=== PATIENT | male | born 1980 | race African-American/Black ===

== ENCOUNTER 2020-04-10 20:29 | Emergency (ER) | payer MEDICAID ==
[~2020-04-10] VITALS: Ht 175.3 cm; Wt 53.0 kg
--- NOTE | 2020-04-10 20:44 | NUR ---
md at bedside to assess pt
--- NOTE | 2020-04-10 20:47 | NUR ---
THIS IS A 39Y M BIB EMS FROM HOME FOR WORSENING ALL OVER JOINT/ BODY PAIN X3 MONTHS. PT HAS HX OF DM AND HAS BEEN TAKING INSULIN BUT NOT BEING ABLE TO URINATE MUCH HE PREVIOUSLY HAS BEEN. PT CONNECTED TO ALL MONITORING VSS, HR TACHY BUT IMPROVING PER EMS REPORT. ERP AWARE. FSBS FOR EMS WAS 210.
[2020-04-10] MEDS ORDERED: SODIUM CHLORIDE 0.9% 1,000 ML IV ONE (20:53)
[2020-04-10] MEDS ORDERED: SODIUM CHLORIDE FLUSH 10ML SYR IVF ONE (21:00)
[2020-04-10] MEDS ORDERED: SODIUM CHLORIDE 0.9% 1,000ML IVBOLUS ONE ×2 (21:00→22:00)
--- NOTE | 2020-04-10 21:02 | NUR ---
IV BOLUS STARTED, INFUSING W/OUT DIFFICULTY. LAB AT BEDSIDE FOR DRAW AT THIS TIME
[2020-04-10 21:18] LABS: HCT (SEDRATE) 45.4 % (39.2-51.8)
[2020-04-10 21:26] LABS: ALANINE AMINOTRANSFERASE 31 U/L (12-78); ALBUMIN 4.1 g/dL (3.4-5.0); ANION GAP 10 mmol/L (5-15); CALCIUM 9.2 mg/dL (8.5-10.1); CHLORIDE 99 mmol/L (98-107); CREATININE 2.07 mg/dL (0.7-1.3); MEAN CORPUSCULAR HEMOGLOBIN 28.3 pg (27.5-34.5); MEAN CORPUSCULAR HGB CONC 32.6 g/dL (33.2-36.2); MEAN PLATELET VOLUME 7.5 fL (7.4-10.4); PLATELET COUNT 360 x10^3/uL (130-400); RED BLOOD COUNT 5.29 x10^6/uL (4.38-5.82); RED CELL DISTRIBUTION WIDTH 12.7 % (9.4-14.8)
--- NOTE | 2020-04-10 21:27 | NUR ---
PT RESTING ON GURNEY EYES CLOSED, RESP EVEN AND UNLABORED HR REMAINS TACHY OTHERWISE VSS.
[2020-04-10 21:29] LABS: ALKALINE PHOSPHATASE 60 U/L (45-117); BILIRUBIN,TOTAL 0.5 mg/dL (0.2-1.0); TOTAL PROTEIN 8.4 g/dL (6.4-8.2)
--- NOTE | 2020-04-10 21:48 | NUR ---
ALL RESULTS BACK CHART UP FOR RECHECK AWAITING FURTHER ORDERS
--- NOTE | 2020-04-10 21:51 | NUR ---
PT STILL UNABLE TO PRODUCE URINE AT THIS TIME FLUIDS STILL INFUSING, MORE WARM BLANKETS PROVIDED REQ
[2020-04-10 22:03] LABS: BASOPHILS # (AUTO) 0.05 x10^3/uL (0-0.1); BASOPHILS % (AUTO) 1 % (0-1); EOSINOPHILS # (AUTO) 0.12 x10^3/uL (0-0.4); EOSINOPHILS % (AUTO) 2 % (1-7); LYMPHOCYTES # (AUTO) 1.91 x10^3/uL (1-3.4); LYMPHOCYTES % (AUTO) 32 % (22-44); MD SCAN; MONOCYTES # (AUTO) 0.56 x10^3/uL (0.2-0.8); MONOCYTES % (AUTO) 9 % (2-9); NEUTROPHILS # (AUTO) 3.35 x10^3/uL (1.8-6.8); NEUTROPHILS % (AUTO) 56 % (42-75)
--- NOTE | 2020-04-10 22:12 | NUR ---
ERP SAHM AT BEDSIDE TO REASSESS PT AND DISCUSS POC. PT STS HE HAS BEEN SEEN FOR THE SAME THING BOTH IN [place] AND AT [facility] [place]. PT RESTING ON GURNEY NADN, HR DOWN TO 116 PILLOW PROVIDED.
--- NOTE | 2020-04-10 22:45 | NUR ---
pt unable to provide urine at this time despite best effort, erp to be updated. hr improving down to 110-113. fluids still infusing nadn
--- NOTE | 2020-04-10 23:27 | NUR ---
ERP AT BEDSIDE FOR REASSESSMENT. PT TO BE DC HOME, FATHER INFORMED AND IS ON THE WAY FROM [place] AT THIS TIME.
[2020-04-10 23:29] VITALS: BP 119/79
== END 2020-04-11 00:10 | disposition home or self-care (01) ==
LOC: ED 22:30
DX: E11.65 Type 2 diabetes mellitus with hyperglycemia (principal); N28.9 Disorder of kidney and ureter, unspecified; G89.29 Other chronic pain; R00.0 Tachycardia, unspecified; R10.30 Lower abdominal pain, unspecified; R42 Dizziness and giddiness; R30.0 Dysuria
CPT/HCPCS: 36415; 71045; 80053; 82800; 83036; 83690; 83735; 84100; 84550; 85025; 85651; 93005; 96360; 96361; 99285; J7030